=== PATIENT | female | born 1945 | race Caucasian/White ===

== ENCOUNTER 2016-09-06 23:10 | Emergency (ER) | payer OTHER ==
[~2016-09-06] VITALS: Ht 160 cm; Wt 50.5 kg
[2016-09-06 23:18] VITALS: BP 144/70; PULSE 81; RESP 16; TEMP 98.1; O2SAT 95
[2016-09-06 23:33] VITALS: BP 144/70; PULSE 81; RESP 26; O2SAT 95
--- NOTE | 2016-09-06 23:57 | PD ---
HPI Chief Complaint: Respiratory Symptoms Time Seen by Provider: 23:52 Travel History International Travel<30 days: Yes Contact w/Intl Traveler<30days: Yes Name of Country Traveled to: [place] Traveled to known affect area: No History of Present Illness HPI The patient is a 71-year-old female with a history of asthma who has been in [facility] from July 11 2 August 26. When she got off the plane she started coughing and wheezing. She comes in today, she feels she has an asthma attack. She denies any fever. She denies any hemoptysis. She does not have a history of TB. PFSH Past Medical History Tetanus Vaccination: Unknown Influenza Vaccination: Yes Social History Alcohol Use: Yes (Socially) Tobacco Use: No Substance Use: No Allergies-Medications (Allergen,Severity, Reaction): Coded Allergies: No Known Allergies (Unverified , 09/06/16) Review of Systems Except as stated in HPI: all other systems reviewed are Neg Physical Exam Narrative GENERAL: The patient is alert, oriented 3 and slight respiratory distress. Her vital signs are normal. SKIN: Focused skin assessment warm/dry. HEAD: Atraumatic. Normocephalic. EYES: Pupils equal and round. No scleral icterus. No injection or drainage. ENT: No nasal bleeding or discharge. Mucous membranes pink and moist. NECK: Trachea midline. No JVD. CARDIOVASCULAR: Regular rate and rhythm. No murmur appreciated. RESPIRATORY: No accessory muscle use. Bilateral wheezes are heard in all lung handley. Breath sounds equal bilaterally. GASTROINTESTINAL: Abdomen soft, non-tender, nondistended. Hepatic and splenic margins not palpable. MUSCULOSKELETAL: No obvious deformities. No clubbing. No cyanosis. No edema. NEUROLOGICAL: Awake and alert. No obvious cranial nerve deficits. Motor grossly within normal limits. Normal speech. PSYCHIATRIC: Appropriate mood and affect; insight and judgment normal. Data Data Last Documented VS Vital Signs Date Time Temp Pulse Resp B/P Pulse Ox O2 Delivery O2 Flow Rate FiO2 09/06/16 23:40 28 95 Room Air 09/06/16 23:33 81 144/70 09/06/16 23:18 98.1 Orders Complete Blood Count With Diff (09/06/16 23:52) Influenzae A/B Antigen (09/06/16 23:52) Blood Culture (09/06/16 23:52) Sodium Chloride 0.9% Flush (Ns Flush) (7/4/17 00:00) Iv Access Insert/Monitor (09/06/16 23:52) Ecg Monitoring (09/06/16 23:52) Oximetry (09/06/16 23:52) Oxygen Administration (09/06/16 23:52) Chest, Pa & Lat (09/06/16 23:52) Sodium Chloride 0.9% Flush (Ns Flush) (09/07/16 00:00) Methylprednisolone So Succ Inj (Solumedr (09/07/16 00:00) Albuterol-Ipratropium Neb (Duoneb Neb) (09/07/16 00:00) Comprehensive Metabolic Panel (09/06/16 23:52) Metd-Bzy-Ryoisu (Booster) Inj (Boostrix (09/07/16 00:45) Labs Laboratory Tests Test 09/06/16 23:55 White Blood Count 7.7 TH/MM3 Red Blood Count 6.16 MIL/MM3 Hemoglobin 12.5 GM/DL Hematocrit 40.1 % Mean Corpuscular Volume 65.1 FL Mean Corpuscular Hemoglobin 20.3 PG Mean Corpuscular Hemoglobin 31.2 % Concent Red Cell Distribution Width 13.4 % Platelet Count 194 TH/MM3 Mean Platelet Volume 8.3 FL Neutrophils (%) (Auto) 47.9 % Lymphocytes (%) (Auto) 39.9 % Monocytes (%) (Auto) 6.9 % Eosinophils (%) (Auto) 4.3 % Basophils (%) (Auto) 1.0 % Neutrophils # (Auto) 3.7 TH/MM3 Lymphocytes # (Auto) 3.1 TH/MM3 Monocytes # (Auto) 0.5 TH/MM3 Eosinophils # (Auto) 0.3 TH/MM3 Basophils # (Auto) 0.1 TH/MM3 CBC Comment AUTO DIFF Sodium Level 144 MEQ/L Potassium Level 4.1 MEQ/L Chloride Level 106 MEQ/L Carbon Dioxide Level 29.2 MEQ/L Anion Gap 9 MEQ/L Blood Urea Nitrogen 20 MG/DL Creatinine 0.93 MG/DL Estimat Glomerular Filtration 60 ML/MIN Rate Random Glucose 122 MG/DL Calcium Level 9.5 MG/DL Total Bilirubin 0.3 MG/DL Aspartate Amino Transf 20 U/L (AST/SGOT) Alanine Aminotransferase 27 U/L (ALT/SGPT) Alkaline Phosphatase 61 U/L Total Protein 7.9 GM/DL Albumin 4.0 GM/DL MDM Medical Decision Making Medical Screen Exam Complete: Yes Emergency Medical Condition: Yes Medical Record Reviewed: Yes Interpretation(s) The chest x-ray shows no evidence for any infiltrate. It shows hyperventilation consistent with COPD. There is a lingular nodule and non- emergent CT chest as an outpatient is recommended. The influenza A/B antigen is negative for flu a and flu B antigen. The CBC is normal except for a low MCV , MCH and MCHC. The white count is low normal at 7700. The complete metabolic profile shows a BUN of 20 but is otherwise normal. Differential Diagnosis Asthma, bronchitis, pneumonia, MERS, flu syndrome Narrative Course The patient likely has a viral syndrome as suggested by the low normal white count. The patient likely has acute asthma, exacerbated by the virus. She is negative for the flu. Except for traveled to [facility], there is no clinical or historical evidence for MERS. It is now 0102 and the patient's lungs are clear and wheezes are only heard on forced expiration. Plan: The patient will be given a tapered course of prednisone over 8 days. She is to follow-up with her primary care physician next week. Diagnosis Primary Impression: Acute asthma Additional Impressions: Viral syndrome Lung nodule, solitary Additional Instructions: As we discussed, the prednisone is one tablet twice daily for 4 days followed by one tablet once daily for 4 days. Follow-up next week with your primary care physician. The radiologist recommends as an outpatient you get a CT of the chest because of your lung nodule Med/Other Pt SpecificInfo: Prescription(s) given Scripts Prednisone 50 Mg Tab50 Mg PO BID #12 TAB Ref 0 Prov:Marcos Higuera MD 09/07/16 Disposition: 01 DISCHARGE HOME Condition: Stable Marcos Higuera MD Sep 06, 2016 23:57
[2016-09-07] MEDS ORDERED: SODIUM CHLORIDE 0.9% FLUSH 10 ML FLUSH IVF PRN
[2016-09-07] MEDS ORDERED: methylPREDNISolone SOD SUCC 125 MG/2 ML VIAL IVP ONE
[2016-09-07] MEDS: RESP: ALBUTEROL 2.5 MG/IPRATROPIUM 0.5 MG NEB (SCH) INH ×3 (00:01→00:04)
[2016-09-07 00:18] VITALS: BP 108/48; PULSE 83; RESP 18; O2SAT 95
[2016-09-07 00:20] LABS: AUTOMATED NEUTROPHIL # 3.7 TH/MM3 (1.8-7.7); BASOPHIL # 0.1 TH/MM3 (0-0.2); EOSINOPHIL # 0.3 TH/MM3 (0-0.4); EOSINOPHIL % 4.3 % (0.0-4.0); HEMATOCRIT 40.1 % (35.0-46.0); LYMPH % 39.9 % (9.0-44.0); LYMPHOCYTE # 3.1 TH/MM3 (1.0-4.8); MEAN CELL VOLUME 65.1 FL (80.0-100.0); MEAN CORPUSCULAR HEMOGLOBIN 20.3 PG (27.0-34.0); MEAN CORPUSCULAR HGB CONC 31.2 % (32.0-36.0); MONO % 6.9 % (0.0-8.0); NEUT % 47.9 % (16.0-70.0); PLATELET COUNT 194 TH/MM3 (150-450); RED BLOOD COUNT 6.16 MIL/MM3 (4.00-5.30); RED CELL DISTRIBUTION WIDTH 13.4 % (11.6-17.2); WHITE BLOOD COUNT 7.7 TH/MM3 (4.0-11.0)
[2016-09-07] MEDS: SODIUM CHLORIDE 0.9% FLUSH 10 ML FLUSH IVF PRN ×2 (00:27→01:29)
[2016-09-07 00:32] LABS: HEMO FLAGS AUTO DIFF
[2016-09-07 00:39] LABS: CHLORIDE 106 MEQ/L (98-107); POTASSIUM 4.1 MEQ/L (3.5-5.1); SODIUM (NA) 144 MEQ/L (136-145)
[2016-09-07 00:43] LABS: ANION GAP 9 MEQ/L (5-15); BICARBONATE 29.2 MEQ/L (21.0-32.0); BLOOD UREA NITROGEN 20 MG/DL (7-18)
[2016-09-07] MEDS ORDERED: DIPHTH/TETANUS/ACEL PERTUSSIS (BOOSTER) 0.5 ML VIAL/PFS IM ONE (00:45)
[2016-09-07 00:46] LABS: ALT (GPT) 27 U/L (10-53); AST (GOT) 20 U/L (15-37); GLOMERULAR FILTRATION RATE 60 ML/MIN (>89)
[2016-09-07 00:47] LABS: TOTAL BILIRUBIN ADULT 0.3 MG/DL (0.2-1.0)
[2016-09-07 00:49] LABS: ALKALINE PHOSPHATASE 61 U/L (45-117)
--- NOTE | 2016-09-07 00:50 | RADRPT ---
EXAM DATE/TIME: 09/06/2016 23:56 [facility] COMPARISON: No previous studies available for comparison. INDICATIONS : Shortness of breath. MEDICAL HISTORY : Asthma. SURGICAL HISTORY : None. ENCOUNTER: Initial ACUITY: 1 day PAIN SCORE: 0/10 LOCATION: Bilateral chest FINDINGS: PA and lateral views of the chest demonstrates hyperinflation which can be seen with CO PD. No infiltrates are seen. Lingular nodule seen. Heart is normal in size. The mediastinal contours are unremarkable. Osseous structures are intact. CONCLUSION: 1. Hyperinflation which can be seen with COPD. 2. Lingular nodule. Nonemergent CT chest as outpatient. 3. No evidence for an infiltrate. Ham Meyers MD on September 07, 2016 at 0:47 Board Certified Radiologist. This report was verified electronically.
[2016-09-07 01:04] LABS: PLATELET ESTIMATE SMEAR NORMAL (NORMAL); PLATELET MORPHOLOGY NORMAL (NORMAL); SCAN/DIFF AUTO DIFF CONFIRMED
[2016-09-07] MEDS ORDERED: PRED50 PO (01:05)
== END 2016-09-07 01:38 | disposition home or self-care (01) ==
LOC: PHED 23:10
DX: J45.909 Unspecified asthma, uncomplicated (principal); B34.9 Viral infection, unspecified; R91.1 Solitary pulmonary nodule; Z23 Encounter for immunization; R06.02 Shortness of breath
CPT/HCPCS: 71020; 80053; 85025; 87040; 87804; 90471; 90715; 94640; 94664; 96374; 99284; J2930

== ENCOUNTER 2016-09-24 02:08 | Emergency (ER) | payer OTHER ==
[~2016-09-24 02:08] MED LIST: PRED50 PO
[2016-09-24 02:20] VITALS: BP 164/81; PULSE 126; RESP 32; TEMP 98.1; O2SAT 98
[2016-09-24] MEDS: RESP: ALBUTEROL 2.5 MG/IPRATROPIUM 0.5 MG NEB (SCH) INH (02:26)
[2016-09-24] MEDS ORDERED: SODIUM CHLORIDE 0.9% FLUSH 10 ML FLUSH IVF PRN (02:30)
[2016-09-24] MEDS ORDERED: methylPREDNISolone SOD SUCC 125 MG/2 ML VIAL IVP ONE (02:30)
[2016-09-24 02:33] LABS: AUTOMATED NEUTROPHIL # 6.2 TH/MM3 (1.8-7.7); BASOPHIL # 0.1 TH/MM3 (0-0.2); BASOPHIL % 0.8 % (0.0-2.0); EOSINOPHIL # 0.4 TH/MM3 (0-0.4); EOSINOPHIL % 3.4 % (0.0-4.0); LYMPH % 27.5 % (9.0-44.0); LYMPHOCYTE # 2.9 TH/MM3 (1.0-4.8); MEAN CELL VOLUME 63.9 FL (80.0-100.0); MEAN CORPUSCULAR HEMOGLOBIN 19.9 PG (27.0-34.0); MEAN CORPUSCULAR HGB CONC 31.2 % (32.0-36.0); NEUT % 60.3 % (16.0-70.0); PLATELET COUNT 185 TH/MM3 (150-450); RED BLOOD COUNT 6.27 MIL/MM3 (4.00-5.30); WHITE BLOOD COUNT 10.4 TH/MM3 (4.0-11.0)
[2016-09-24 02:34] LABS: HEMO FLAGS AUTO DIFF
[2016-09-24 02:39] LABS: CHLORIDE 109 MEQ/L (98-107); POTASSIUM 3.7 MEQ/L (3.5-5.1); SODIUM (NA) 142 MEQ/L (136-145)
[2016-09-24 02:42] LABS: ANION GAP 7 MEQ/L (5-15); BICARBONATE 26.1 MEQ/L (21.0-32.0)
[2016-09-24 02:43] LABS: BLOOD UREA NITROGEN 25 MG/DL (7-18)
[2016-09-24 02:45] LABS: ALT (GPT) 54 U/L (10-53); AST (GOT) 30 U/L (15-37)
[2016-09-24 02:46] LABS: GLOMERULAR FILTRATION RATE 59 ML/MIN (>89)
[2016-09-24 02:47] LABS: TOTAL BILIRUBIN ADULT 0.3 MG/DL (0.2-1.0)
[2016-09-24 02:49] LABS: ALKALINE PHOSPHATASE 84 U/L (45-117)
[2016-09-24 02:54] LABS: PLATELET ESTIMATE SMEAR NORMAL (NORMAL); PLATELET MORPHOLOGY NORMAL (NORMAL); SCAN/DIFF AUTO DIFF CONFIRMED; TARGET CELLS 1+ (NORMAL)
[2016-09-24] MEDS ORDERED: CALC1TAB12 PO (03:01)
[2016-09-24] MEDS ORDERED: CHOL5000 PO (03:01)
[2016-09-24] MEDS ORDERED: VENTAER INH (03:01)
[2016-09-24 03:04] VITALS: BP 101/50; PULSE 98; RESP 20; O2SAT 96
--- NOTE | 2016-09-24 03:10 | PD ---
HPI Chief Complaint: Respiratory Distress Time Seen by Provider: 02:16 Travel History International Travel<30 days: No Contact w/Intl Traveler<30days: No Traveled to known affect area: No History of Present Illness HPI The patient is a 71-year-old female that has been in the emergency department multiple times because of bronchospasm. She has had shortness of breath for 24 hours tonight. She has never seen a perinatal breastfeeding assistant and she does not have a nebulizer at home. She has only a handheld albuterol inhaler. She completed her last prednisone course 2 weeks ago. The radiologist had suggested that she get a CT of the thorax because there was a questionable mass on an x-ray taken recently. [facility] Social History Alcohol Use: Yes (Socially) Tobacco Use: No Substance Use: No Allergies-Medications (Allergen,Severity, Reaction): Coded Allergies: No Known Allergies (Unverified , 09/24/16) Reported Meds & Prescriptions Reported Meds & Active Scripts Active Duoneb (Ipratropium-Albuterol Neb) 0.5-2.5 Mg/3 Ml Neb 1 Nebule INH Q8HR NEB Prednisone 50 Mg Tab 50 Mg PO BID Reported Vitamin D3 (Cholecalciferol) 5,000 Unit Cap 5,000 Units PO DAILY Calcium 500 +D (Calcium Carbonate-Cholecalciferol) 500-400 Mg-Unit Tab 2 Tab PO BID Ventolin Hfa 18 GM Inh (Albuterol Sulfate) 90 Mcg/Act Aer 2 Puff INH Q4-6H PRN Review of Systems Except as stated in HPI: all other systems reviewed are Neg Physical Exam Narrative GENERAL: The patient is alert, oriented 3 and moderate respiratory distress when she came in. Her vital signs show pulse rate of 126, respiratory rate of 32, blood pressure 164/81 but are otherwise normal. Oximetry is 98% but this is on 4 L nasal cannula. On room air her oximetry is 89% when she came in. SKIN: Focused skin assessment warm/dry. HEAD: Atraumatic. Normocephalic. EYES: Pupils equal and round. No scleral icterus. No injection or drainage. ENT: No nasal bleeding or discharge. Mucous membranes pink and moist. NECK: Trachea midline. No JVD. CARDIOVASCULAR: Regular rate and rhythm. No murmur appreciated. RESPIRATORY: No accessory muscle use. Bilateral wheezes are heard in all lung handley. Breath sounds equal bilaterally. GASTROINTESTINAL: Abdomen soft, non-tender, nondistended. Hepatic and splenic margins not palpable. MUSCULOSKELETAL: No obvious deformities. No clubbing. No cyanosis. No edema. NEUROLOGICAL: Awake and alert. No obvious cranial nerve deficits. Motor grossly within normal limits. Normal speech. PSYCHIATRIC: Appropriate mood and affect; insight and judgment normal. Data Data Last Documented VS Vital Signs Date Time Temp Pulse Resp B/P Pulse Ox O2 Delivery O2 Flow Rate FiO2 09/24/16 03:04 98 20 101/50 96 Nasal Cannula 2 09/24/16 02:[address] Thorax/ Chest Wo Iv Contras (09/24/16 02:16) Complete Blood Count With Diff (09/24/16 02:16) Comprehensive Metabolic Panel (09/24/16 02:16) B-Type Natriuretic Peptide (09/24/16 02:16) Troponin I (09/24/16 02:16) Arterial Blood Gas (Abg) (09/24/16 02:16) Iv Access Insert/Monitor (09/24/16 02:16) Ecg Monitoring (09/24/16 02:16) Oximetry (09/24/16 02:16) Oxygen Administration (09/24/16 02:16) Sodium Chloride 0.9% Flush (Ns Flush) (09/24/16 02:30) Methylprednisolone So Succ Inj (Solumedr (09/24/16 02:30) Albuterol-Ipratropium Neb (Duoneb Neb) (09/24/16 02:30) Labs Laboratory Tests Test 09/24/16 09/24/16 02:20 03:08 White Blood Count 10.4 TH/MM3 Red Blood Count 6.27 MIL/MM3 Hemoglobin 12.5 GM/DL Hematocrit 40.0 % Mean Corpuscular Volume 63.9 FL Mean Corpuscular Hemoglobin 19.9 PG Mean Corpuscular Hemoglobin 31.2 % Concent Red Cell Distribution Width 14.0 % Platelet Count 185 TH/MM3 Mean Platelet Volume 8.5 FL Neutrophils (%) (Auto) 60.3 % Lymphocytes (%) (Auto) 27.5 % Monocytes (%) (Auto) 8.0 % Eosinophils (%) (Auto) 3.4 % Basophils (%) (Auto) 0.8 % Neutrophils # (Auto) 6.2 TH/MM3 Lymphocytes # (Auto) 2.9 TH/MM3 Monocytes # (Auto) 0.8 TH/MM3 Eosinophils # (Auto) 0.4 TH/MM3 Basophils # (Auto) 0.1 TH/MM3 CBC Comment AUTO DIFF Differential Comment AUTO DIFF CONFIRMED Platelet Estimate NORMAL Platelet Morphology Comment NORMAL Target Cells 1+ Sodium Level 142 MEQ/L Potassium Level 3.7 MEQ/L Chloride Level 109 MEQ/L Carbon Dioxide Level 26.1 MEQ/L Anion Gap 7 MEQ/L Blood Urea Nitrogen 25 MG/DL Creatinine 0.94 MG/DL Estimat Glomerular Filtration 59 ML/MIN Rate Random Glucose 130 MG/DL Calcium Level 8.6 MG/DL Total Bilirubin 0.3 MG/DL Aspartate Amino Transf 30 U/L (AST/SGOT) Alanine Aminotransferase 54 U/L (ALT/SGPT) Alkaline Phosphatase 84 U/L Troponin I LESS THAN 0.02 NG/ML B-Type Natriuretic Peptide 12 PG/ML Total Protein 8.0 GM/DL Albumin 4.1 GM/DL Blood Gas Puncture Site RT RADIAL Blood Gas Patient Temperature 98.6 Blood Gas HCO3 22 mmol/L Blood Gas Base Excess -2.5 mmol/L Blood Gas Oxygen Saturation 91 % Arterial Blood pH 7.38 Arterial Blood Partial 38 mmHG Pressure CO2 Arterial Blood Partial 70 mmHG Pressure O2 Arterial Blood Oxygen Content 15.5 Vol % Arterial Blood 1.3 % Carboxyhemoglobin Arterial Blood Methemoglobin 1.4 % Blood Gas Hemoglobin 12.1 G/DL Blood Gas Inspired Oxygen 21 % MDM Medical Decision Making Medical Screen Exam Complete: Yes Emergency Medical Condition: Yes Medical Record Reviewed: Yes Interpretation(s) The CT thorax shows no evidence of acute thoracic abnormality and no masses are identified. The blood gases after multiple treatments of DuoNeb show pH 7.38, CO2 38, PO2 70 with carboxyhemoglobin 1.3. Differential Diagnosis Pneumonia, pulmonary embolus, acute bronchospasm, hypoxemia, pulmonary mass, COPD with acute exacerbation Narrative Course The patient appears to have acute bronchospasm. She was hypoxemic when she came in with 89% on room air. Now she feels comfortable and her oximetry is 93% . She wants to go home now. It is recommended that she ultimately see a perinatal breastfeeding assistant and also get a nebulizer machine. She will be prescribed DuoNeb treatments for the nebulizer machine. Diagnosis Primary Impression: Acute asthma Additional Instructions: As we discussed, we hope you see a perinatal breastfeeding assistant as soon as possible. Also we hope that you get a nebulizer machine. Med/Other Pt SpecificInfo: Prescription(s) given Scripts Ipratropium-Albuterol Neb (Duoneb)0.5-2.5 Mg/3 Ml Neb1 Nebule INH Q8HR NEB #30 NEBULE Ref 0 Prov:Marcos Higuera MD 09/24/16 Prednisone 50 Mg Tab50 Mg PO BID #12 TAB Ref 0 Prov:Marcos Higuera MD 09/24/16 Disposition: 01 DISCHARGE HOME Condition: Stable Marcos Higuera MD Sep 24, 2016 03:10
--- NOTE | 2016-09-24 03:16 | RADRPT ---
EXAM DATE/TIME: 09/24/2016 02:36 [facility] COMPARISON: No previous studies available for comparison. INDICATIONS : Shortness of breath. Lung nodule. RADIATION DOSE: 6.18 CTDIvol (mGy) MEDICAL HISTORY : Chronic obstructive pulmonary disease. Asthma, lung nodule SURGICAL HISTORY : None. ENCOUNTER: Initial ACUITY: 1 day PAIN SCALE: 5/10 LOCATION: chest TECHNIQUE: Volumetric scanning of the chest was performed. Using automated exposure control and adjustment of t he mA and/or kV according to patient size, radiation dose was kept as low as reasonably achievable to obtain optimal diagnostic quality images. DICOM format image data is available electronically for r eview and comparison. Follow-up recommendations for incidentally detected pulmonary nodules are based at a minimum on nodul e size and patient risk factors according to Fleischner Society Guidelines. FINDINGS: Examination of the lung handley demonstrates no evidence of pulmonary nodule. No pleural fluid is iden tified. Examination of the mediastinum demonstrates no abnormally enlarged lymph nodes by CT criteria. No axi llary or hilar abnormalities are identified. Coronary artery calcifications are present. The visualiz ed upper abdomen demonstrates no abnormality. CONCLUSION: 1. No evidence of acute thoracic abnormality. No masses are identified. Reggie Landers MD on September 24, 2016 at 3:13 Board Certified Radiologist. This report was verified electronically.
[2016-09-24 03:20] LABS: BLOOD GAS BASE EXCESS -2.5 mmol/L (-2-2); BLOOD GAS CARBOXYHEMOGLOBIN 1.3 % (0-4); BLOOD GAS HCO3 22 mmol/L (22-26); BLOOD GAS METHEMOGLOBIN 1.4 % (0-2); BLOOD GAS O2 HGB SATURATION 91 % (90-100); BLOOD GAS OXYGEN CONTENT 15.5 Vol % (12.0-20.0); BLOOD GAS PCO2 38 mmHG (38-42); BLOOD GAS PO2 70 mmHG (61-120); BLOOD GAS TOTAL HGB 12.1 G/DL (12.0-16.0); CRITICAL VALUE NO; DRAW SITE RT RADIAL; FIO2 21 %; NUMBER OF ARTERIAL PUNCTURES 1; STAT YES; TEMP CORR TO 98.6; ULNAR PULSE Y
[2016-09-24] MEDS ORDERED: PRED50 PO (03:48)
[2016-09-24] MEDS ORDERED: IPRASOL INH (03:50)
[2016-09-24 04:19] VITALS: BP 105/68
== END 2016-09-24 04:23 | disposition home or self-care (01) ==
LOC: PHED 02:08
DX: J45.909 Unspecified asthma, uncomplicated (principal)
CPT/HCPCS: 36600; 71250; 80053; 82805; 83880; 84484; 85025; 94640; 94664; 96374; 99285; J2930

== ENCOUNTER 2016-10-19 14:33 | Emergency (ER) | payer OTHER ==
[~2016-10-19] VITALS: Ht 157.5 cm; Wt 51.0 kg
[~2016-10-19 14:33] MED LIST changes: +CALC1TAB12 PO; +CHOL5000 PO; +IPRASOL INH; +VENTAER INH
[2016-10-19 14:49] VITALS: BP 118/63; PULSE 102; RESP 19; TEMP 98.3; O2SAT 97
[2016-10-19 14:50] VITALS: RESP 18; O2SAT 97
[2016-10-19 15:00] VITALS: BP 141/65; PULSE 103; RESP 18; O2SAT 97
[2016-10-19] MEDS ORDERED: predniSONE 20 MG TAB PO ONE (15:15)
[2016-10-19] MEDS: RESP: ALBUTEROL 2.5 MG/IPRATROPIUM 0.5 MG NEB (SCH) INH ×2 (15:24→15:25)
[2016-10-19] MEDS ORDERED: PRED20 PO (15:30)
[2016-10-19] MEDS ORDERED: ALBUAER3 INH (15:30)
--- NOTE | 2016-10-19 15:30 | PD ---
HPI Chief Complaint: Respiratory Distress Time Seen by Provider: 15:00 Travel History International Travel<30 days: No Contact w/Intl Traveler<30days: No Traveled to known affect area: No History of Present Illness HPI Patient is a 71-year-old female who presents to emergency room with complaints of asthma exacerbation. She has had seasonal allergies for the past 20 years, reports that for the past 2 days, she has been having increased wheezing and difficulty with breathing. Patient reports that she has been using her albuterol treatments has felt better after her treatments, reports that today, her symptoms are worse and she is unable to control her asthma safely by herself. Patient reports that she has had a nonproductive cough, no fevers or chills. Reports that she was treated last month for an asthma exacerbation. Patient denies any chest pain at this time. Patient does have her first appointment with the aviation ordnance officer on November 15, 2016. Patient reports that she has never been intubated or admitted to the hospital for asthma exacerbation. Patient is a nonsmoker. PFSH Past Medical History Asthma: Yes Respiratory: Yes Immunizations Current: Yes (DIP/TET/PERTUSSIS) Social History Alcohol Use: Yes (OCCASIONALLY) Tobacco Use: No Substance Use: No Allergies-Medications (Allergen,Severity, Reaction): Coded Allergies: No Known Allergies (Unverified , 10/19/16) Reported Meds & Prescriptions Reported Meds & Active Scripts Active Duoneb (Ipratropium-Albuterol Neb) 0.5-2.5 Mg/3 Ml Neb 1 Nebule INH Q8HR NEB Prednisone 50 Mg Tab 50 Mg PO BID Reported Vitamin D3 (Cholecalciferol) 5,000 Unit Cap 5,000 Units PO DAILY Calcium 500 +D (Calcium Carbonate-Cholecalciferol) 500-400 Mg-Unit Tab 2 Tab PO BID Ventolin Hfa 18 GM Inh (Albuterol Sulfate) 90 Mcg/Act Aer 2 Puff INH Q4-6H PRN Review of Systems General / Constitutional: No: Fever Eyes: No: Visual changes HENT: No: Headaches Cardiovascular: No: Chest Pain or Discomfort Respiratory: Positive: Cough, Shortness of Breath, Wheezing Gastrointestinal: No: Abdominal Pain Genitourinary: No: Dysuria Musculoskeletal: No: Pain Skin: No Rash Neurologic: No: Weakness Psychiatric: No: Depression Endocrine: No: Polydipsia Hematologic/Lymphatic: No: Easy Bruising Physical Exam Narrative GENERAL: Mild distress SKIN: Focused skin assessment warm/dry. HEAD: Atraumatic. Normocephalic. EYES: Pupils equal and round. No scleral icterus. No injection or drainage. ENT: No nasal bleeding or discharge. Mucous membranes pink and moist. NECK: Trachea midline. No JVD. CARDIOVASCULAR: Regular rate and rhythm. No murmur appreciated. RESPIRATORY: No accessory muscle use. Patient with diffuse wheezing to upper and lower lobes of lungs on exam GASTROINTESTINAL: Abdomen soft, non-tender, nondistended. Hepatic and splenic margins not palpable. MUSCULOSKELETAL: No obvious deformities. No clubbing. No cyanosis. No edema. NEUROLOGICAL: Awake and alert. No obvious cranial nerve deficits. Motor grossly within normal limits. Normal speech. PSYCHIATRIC: Appropriate mood and affect; insight and judgment normal. Data Data Last Documented VS Vital Signs Date Time Temp Pulse Resp B/P Pulse Ox O2 Delivery O2 Flow Rate FiO2 10/19/16 14:49 98.3 102 19 118/63 97 Orders Chest, Pa & Lat (10/19/16 15:09) Ecg Monitoring (10/19/16 15:09) Oximetry (10/19/16 15:09) Prednisone (Deltasone) (10/19/16 15:15) Albuterol-Ipratropium Neb (Duoneb Neb) (10/19/16 15:15) MDM Medical Decision Making Medical Screen Exam Complete: Yes Emergency Medical Condition: Yes Interpretation(s) Vital Signs Date Time Temp Pulse Resp B/P Pulse Ox O2 Delivery O2 Flow Rate FiO2 10/19/16 14:49 98.3 102 19 118/63 97 Differential Diagnosis Differential includes acute asthma exacerbation, pneumonia, viral syndrome Narrative Course Patient is a 71-year-old female who presents to emergency room with planes of asthma exacerbation. Patient reports that she is wheezing and has been feeling short of breath for the past 2 days, reports that when she uses her albuterol treatments, they only help for 30 min and she then begins to wheeze again. Reports that she has had a dry cough for the past 2 days. Patient wheezing on exam, no retractions. Xray of chest ordered. PO prednisone and duo nebs ordered. Plan to monitor patient Diagnosis Primary Impression: Acute asthma Patient Instructions: Narcotic given in the ED Additional Instructions: Please call your aviation ordnance officer for earliest follow up Return to ER if symptoms worsen or progress Please follow up with your primary care doctor Please take all medications as prescribed Med/Other Pt SpecificInfo: Prescription(s) given Scripts Albuterol 8.5 GM Inh (Proair Hfa 8.5 GM Inh)90 Mcg/Act Aer2 Puff INH Q4-6H PRN ( SHORTNESS OF BREATH) #1 INHALER Ref 0 108 mcg/actuation Prov:Waleska Oliveros DO 10/19/16 Prednisone 20 Mg Tab20 Mg PO BID 5 Days Ref 0 Prov:Waleska Oliveros DO 10/19/16 Waleska Oliveros DO Oct 19, 2016 15:30
[2016-10-19 16:14] VITALS: BP 116/67; PULSE 103; RESP 18; O2SAT 97
--- NOTE | 2016-10-19 17:01 | PD ---
Data Data Last Documented VS Vital Signs Date Time Temp Pulse Resp B/P Pulse Ox O2 Delivery O2 Flow Rate FiO2 10/19/16 16:16 100 16 97 Room Air 10/19/16 16:14 116/67 10/19/16 14:49 98.3 Orders Chest, Pa & Lat (10/19/16 15:09) Ecg Monitoring (10/19/16 15:09) Oximetry (10/19/16 15:09) Prednisone (Deltasone) (10/19/16 15:15) Albuterol-Ipratropium Neb (Duoneb Neb) (10/19/16 15:15) [facility] Supervised Visit with CHRISTINA: No Narrative Course Patient was signed out to me at approximate 4:00 PM by the previous provider at the beginning of my shift. See her note for further details. Briefly this is a 71-year-old female with history of asthma who is here for evaluation of 2 days of worsening wheezing and shortness of breath. Home treatments are not helping. She has an appointment with a litigation legal secretary next month. She was provided 3 DuoNeb treatments and prednisone by the previous provider, and at time of signout the patient's respiratory status has significantly improved. Chest x-ray was ordered by the previous provider and was pending at time of signout. Chest x-ray: CONCLUSION: 1. COPD changes. No acute abnormality. Patient and the patient's significant other were made aware of chest x-ray finding. Patient reports feeling significantly improved and well enough to go home. She does have some slight end expiratory wheezes bilaterally, however she is in no respiratory distress. She will be discharged home with a prescription for prednisone for 5 days. She was informed on when to return to the emergency department. She verbalizes understanding and agreement with plan. Diagnosis Primary Impression: Acute asthma Referrals: Primary Care Physician 3 days American Sign Language Teacher Additional Instruction: Please call your litigation legal secretary for earliest follow up Return to ER if symptoms worsen or progress Please follow up with your primary care doctor Please take all medications as prescribed Scripts Albuterol 8.5 GM Inh (Proair Hfa 8.5 GM Inh)90 Mcg/Act Aer2 Puff INH Q4-6H PRN ( SHORTNESS OF BREATH) #1 INHALER Ref 0 108 mcg/actuation Prov:Waleska Oliveros DO 10/19/16 Prednisone 20 Mg Tab20 Mg PO BID 5 Days Ref 0 Prov:Waleska Oliveros DO 10/19/16 Disposition: 01 DISCHARGE HOME Condition: Stable Yemi Gr MD Oct 19, 2016 17:01
--- NOTE | 2016-10-19 17:07 | RADRPT ---
EXAM DATE/TIME: 10/19/2016 16:23 [facility] COMPARISON: CHEST PA & LAT, September 06, 2016, 23:56. INDICATIONS : Wheezing. MEDICAL HISTORY : Chronic obstructive pulmonary disease. Asthma, lung nodule. SURGICAL HISTORY : None. ENCOUNTER: Initial ACUITY: 1 day PAIN SCORE: 0/10 LOCATION: Bilateral chest FINDINGS: The heart is normal in size. There are COPD changes. No suspicious nodules or masses are seen. The os seous structures are intact. CONCLUSION: 1. COPD changes. No acute abnormality. Bob Logan MD on October 19, 2016 at 17:05 Board Certified Radiologist. This report was verified electronically.
[2016-10-19 17:44] VITALS: BP 121/69
== END 2016-10-19 18:08 | disposition home or self-care (01) ==
LOC: PHED 14:33
DX: J45.901 Unspecified asthma with (acute) exacerbation (principal)
CPT/HCPCS: 71020; 94640; 94664; 99284; J7512

== ENCOUNTER → 2016-11-02 | Outpatient (CLI) | payer OTHER ==
[~2016-11-02] MED LIST changes: +ALBUAER3 INH; +PRED20 PO; -PRED50 PO
--- NOTE | 2016-11-09 10:15 | RSPPFT ---
DATE OF PROCEDURE: 11/02/16 COMMENTS: VOLUMES DYNAMIC: FVC moderately reduced; FEV1 severely reduced. STATIC: RV mildly increased, FRC and TLC normal. FLOWS: FEV1% and FEF 25-75 moderately to severe reduced. DIFFUSION; Moderately reduced. FLOW VOLUME LOOP: Pattern of variable intrathoracic airways obstruction. IMPRESSION: Moderately severe to severe obstructive ventilator defect with a mild reduction in diffusion and mild hyperinflation. Minimal improvement post-bronchodilator.
== END ==
LOC: HRSP 10:25
PROVIDERS: ATTEND Internal Medicine
DX: J45.909 Unspecified asthma, uncomplicated (principal)
CPT/HCPCS: 94060; 94620; 94726; 94729; 95012

== ENCOUNTER → 2017-08-15 | Outpatient (CLI) | payer OTHER | LOC: HRSP 07:31 | PROVIDERS: ATTEND Internal Medicine | DX: J45.909 Unspecified asthma, uncomplicated (principal) | CPT/HCPCS: 94060; 94618; 94726; 94729; 95012 ==